=== PATIENT | female | born 1985 | race Caucasian/White ===

== ENCOUNTER → 2016-05-27 | Outpatient (CLI) | payer BC ==
--- OUTSIDE RECORDS SUMMARY | 2016-05-27 10:38 | XMS REPORT ---
Author Author Mateo Price Organization [employer] Address Unknown Phone Unavailable Care Team Providers Care Tabulating Clerk Name Role Phone Mateo Price Unavailable Allergies No Known Allergies Problems Problem Type Condition ICD-9 Code Onset Dates Condition Status Problem Fatigue 780.79 Active Problem Cold Intolerance 780.99 Active Problem Hair loss 704.00 Active Problem Asthma 493.90 Active Medications No Known Medications Results No Known Results Summary Purpose [employer] Submission
== END ==
LOC: LAB 10:34
PROVIDERS: ATTEND Obstetrics & Gynecology
DX: N97.9 Female infertility, unspecified (principal)
CPT/HCPCS: 36415; 84144

== ENCOUNTER → 2017-07-04 | Outpatient (CLI) | payer OTHER ==
[~2017-07-04] MED LIST: HYDR-757 PO; IBUP-1773 PO; MULT1CAP27 PO
--- NOTE | 2017-07-04 18:16 | Diagnostic Imaging Report ---
INDICATION: Breast pain. EXAMINATION: Left breast ultrasound. COMPARISON: None. FINDINGS: The left axilla was imaged and demonstrated no underlying mass or cyst. There is no inflammation. IMPRESSION: Negative left breast ultrasound. ACR BI-RADS Category 1: Negative. Result letter will be mailed to the patient. Note: At least 10% of breast cancer is not imaged by mammography. Dictated by: Dictated on workstation # [id number]
== END ==
LOC: RAD 10:46
PROVIDERS: ATTEND Nurse Practitioner Family
DX: N64.4 Mastodynia (principal)
CPT/HCPCS: 76642

== ENCOUNTER 2018-09-08 09:26 | Outpatient (CLI) | payer OTHER ==
[~2018-09-08] VITALS: Ht 157.5 cm; Wt 63.0 kg
[~2018-09-08 09:26] MED LIST changes: +HYDR-4226 PO; -HYDR-757 PO
[2018-09-08] MEDS ORDERED: L.AC1CAP6 PO (09:37)
[2018-09-08] MEDS ORDERED: [UNRECOGNIZED DRUG - OTHER] PO (09:37)
[2018-09-08 09:39] VITALS: BP 100/64
[2018-09-08 10:17] LABS: BASOPHILS % (AUTO) 1 % (0-10); EOSINOPHILS # (AUTO) 0.1 10^3/uL (0.0-0.3); EOSINOPHILS % (AUTO) 2 % (0-10); HEMATOCRIT 40 % (35-52); HEMOGLOBIN 13.7 G/DL (11.5-16.0); LYMPHOCYTES # (AUTO) 1.2 X 10^3 (1.0-4.0); LYMPHOCYTES % (AUTO) 24 % (12-44); MEAN CORPUSCULAR HEMOGLOBIN 30 PG (25-34); MEAN CORPUSCULAR HGB CONC 35 G/DL (32-36); MEAN CORPUSCULAR VOLUME 87 FL (80-99); MONOCYTES # (AUTO) 0.4 X 10^3 (0.0-1.0); MONOCYTES % (AUTO) 8 % (0-12); NEUTROPHILS # (AUTO) 3.4 X 10^3 (1.8-7.8); NEUTROPHILS % (AUTO) 66 % (42-75); PLATELET COUNT 276 10^3/uL (130-400); RED CELL DISTRIBUTION WIDTH 12.7 % (10.0-14.5); WHITE BLOOD COUNT 5.2 10^3/uL (4.3-11.0)
== END 2018-09-08 10:46 | disposition home or self-care (01) ==
LOC: PREOP 09:26
PROVIDERS: ATTEND Obstetrics & Gynecology
DX: Z01.812 Encounter for preprocedural laboratory examination (principal); Z11.2 Encounter for screening for other bacterial diseases; N94.10 Unspecified dyspareunia; R10.2 Pelvic and perineal pain; N97.1 Female infertility of tubal origin
CPT/HCPCS: 36415; 85025; 86850; 86900; 86901; 87081

== ENCOUNTER 2018-09-11 06:05 | Day surgery (SDC) | payer OTHER ==
[~2018-09-11] VITALS: Ht 157.5 cm; Wt 63.0 kg
[~2018-09-11 06:05] MED LIST changes: +L.AC1CAP6 PO; +[UNRECOGNIZED DRUG - OTHER] PO
[2018-09-11] MEDS ORDERED: LACTATED RINGERS 1,000 ML IV PRN (06:16)
[2018-09-11] MEDS ORDERED: ceFAZolin INJECTION 1,000 MG in WATER (STERILE) FOR INJECTION 10 ML IV ONE (06:30)
[2018-09-11] MEDS ORDERED: BUPIVACAINE 0.25% 30 ML (SENSORCAINE) VIAL ONE (06:36)
[2018-09-11 06:45] VITALS: BP 92/64
[2018-09-11] MEDS ORDERED: ROCURONIUM 10 MG/ML 5 ML SYRINGE IV ONE (06:58)
[2018-09-11] MEDS ORDERED: MIDAZOLAM 2 MG/2 ML (VERSED) VIAL ONE (06:58)
[2018-09-11] MEDS ORDERED: ONDANSETRON 4 MG/2 ML (SDV) Z0FRAN ONE (06:58)
[2018-09-11] MEDS ORDERED: proPOfol 200 MG/20 ML (DIPRIVAN) VIAL IV ONE (06:58)
[2018-09-11] MEDS ORDERED: fentaNYL INJECTION 100 MCG/2 ML AMP ONE ×2 (06:58→08:51)
[2018-09-11] MEDS ORDERED: LIDOCAINE PF 2% 5 ML (XYLOCAINE) VIAL ONE (06:58)
[2018-09-11] MEDS ORDERED: SEVOFLURANE (ULTANE) 15 ML INHAL SOLN ONE ×6 (07:06→08:35)
[2018-09-11] MEDS ORDERED: DEXAMETHASONE 10 MG/ML (DECADRON) 1 ML VIAL ONE (07:06)
--- NOTE | 2018-09-11 07:15 | Progress Note-Pre Operative ---
Pre-Operative Progress Note H&P Reviewed The H&P was reviewed, patient examined and no changes noted. Date Seen by Provider: Sep 11, 2018 Time Seen by Provider: 07:15 Date H&P Reviewed: Sep 11, 2018 Time H&P Reviewed: 07:15 Pre-Operative Diagnosis: Dyspareunia SHAHZAD DELVALLE DO Sep 11, 2018 07:14
[2018-09-11] MEDS ORDERED: MAGN250T2 (07:29)
[2018-09-11] MEDS ORDERED: INDIGO CARMINE 8 MG/ML 5 ML AMP ONE (07:51)
[2018-09-11] MEDS ORDERED: NEOSTIGMINE 1 MG/ML 5 ML SYRINGE ONE (08:29)
[2018-09-11] MEDS ORDERED: GLYCOPYRROLATE 0.2 MG/ML (ROBINUL) 2 ML VIAL ONE (08:30)
[2018-09-11] MEDS ORDERED: D5 LR IV SOLUTION 1,000 ML IV SCH (08:55)
[2018-09-11] MEDS ORDERED: ONDANSETRON 4 MG/2 ML (SDV) Z0FRAN IVP PRN ×2 (09:00)
[2018-09-11] MEDS ORDERED: MEPERIDINE (DEMEROL) INJ 50 MG/ML IVP ONE (09:00)
[2018-09-11] MEDS ORDERED: fentaNYL INJECTION 100 MCG/2 ML AMP IVP ONE (09:00)
[2018-09-11] MEDS ORDERED: KETOROLAC 30 MG/ML VIAL IVP ONE (09:00)
--- NOTE | 2018-09-11 09:01 | Discharge Inst-Women's Service ---
Discharge Inst-Women's Serv Depart Medication/Instructions New, Converted or Re-Newed RX: RX on Chart Consults/Follow Up Additional Follow Up: Yes Orders/Referrals [address] Delvalle Activity Driving Instructions: You May Drive (do not drive while taking narcotic pain meds) NO SMOKING: NO SMOKING Nothing Inside Vagina: No Douching, No [place], No Tampons Diet Discharge Diet: Liquid Diet Symptoms to Report to : Bleeding Excessive, Pain Increased, Fever Over 101 Degrees F, Vaginal Bleeding Increase, Questions/Concerns For Any Problems or Questions: Contact Your Physician Skin/Wound Care Infection Signs and Symptoms: Increased Redness, Foul Odor of Wound, Increased Drainage, Skin Itchy or Has a Rash, Increased Swelling, Temperature Above 101 F Operative Area Clean and Dry: Keep Incision Clean/Dry Stitches/[place]/Dermabond: Dermabond, Care of Stitches SHAHZAD DELVALLE DO Sep 11, 2018 09:01
[2018-09-11] MEDS ORDERED: IBUP-1773 PO (09:02)
[2018-09-11] MEDS ORDERED: HYDR-4226 PO (09:02)
[2018-09-11] MEDS ORDERED: KETOROLAC 30 MG/ML VIAL ONE ×2 (09:04→14:25)
[2018-09-11] MEDS ORDERED: HYDROcodone/APAP 5 MG/325 MG (LORTAB) TAB PO PRN (09:15)
[2018-09-11 09:45] VITALS: BP 110/74
--- NOTE | 2018-09-11 09:52 | CONSULTATION REPORT ---
DATE OF SERVICE: 09/11/2018 ATTENDING PHYSICIAN: Dr. El. HISTORY OF PRESENT ILLNESS: The patient is a 33-year-old female and we are asked for an intraoperative consultation. She has a history of infertility as well as disk hernia and underwent a diagnostic laparoscopy and chromotubation. During the process, the patient was found to have a gastric as well as proximal small bowel distention. Upon examination after placement of an orogastric tube and decompression, there was adequate decompression of both the stomach and the proximal small bowel. Upon further inspection laparoscopically as well, there was a small area identified in the anterior wall of the stomach near the antrum with a small overlying blood clot, which most likely indicated Veress needle insertion into the stomach. The remainder of the surgery was uneventful. The patient was extubated and there was adequate hemostasis as well as no hematomas identified. PAST MEDICAL HISTORY: Dyspareunia, infertility. PAST SURGICAL HISTORY: None. ALLERGIES: CODEINE, FEXOFENADINE, PSEUDOEPHEDRINE. MEDICATIONS: Magnesium, multivitamin ibuprofen. SOCIAL HISTORY: Negative smoke. Negative alcohol. FAMILY HISTORY: Unknown. REVIEW OF SYSTEMS: Intraoperative consultation was made. The patient is stable with stable vital signs under general anesthesia. Her weight is 63 kilograms with body mass index of 25. She has three 5 mm ports placed. Upon examination of the gastrointestinal tract under laparoscopy, the orogastric tube is allowed for decompression of the stomach as well as the proximal small bowel. There is no distal small bowel distention. Upon further inspection along the anterior wall of the antrum, there was a small blood clot with no open gastrostomy identified. No hematomas. The stomach appeared well vascularized. PHYSICAL EXAMINATION: VITAL SIGNS: Temperature 98.6, blood pressure 92/64, pulse 68, respirations 18. CHEST: Clear. Good breath sounds bilaterally. HEART: Regular. EXTREMITIES: Normal. Negative Homans'. HEENT: Normal inspection. ABDOMEN: Under laparoscopic video exploration, there appeared to be a previous small gastrostomy through Veress needle; however, after decompression there were no signs of any other injury. There is no open gastrostomy noted, only a small blood clot overlying the anterior portion of the antrum. ASSESSMENT AND PLAN: A 33-year-old female with history of disk hernia and infertility. She underwent a diagnostic laparoscopy as well as chromotubation. During the process of insufflation, there was a gastric as well as proximal small bowel distention; however, after placement of orogastric tube, there was adequate decompression and upon inspection of the stomach, there was a small blood clot most likely indicating a small Veress needle gastrostomy of the stomach as well as insufflation; however, the patient is healthy and the stomach is well vascularized and we will just recommend a conservative management with a clear liquid diet for the next 24 hours and slowly advance as tolerated. If she does have any issues with abdominal distention or nausea, vomiting or hematemesis, we will have her follow up. Job ID: [id number] DocumentID: [id number] Dictated Date: 09/11/2018 09:15:26 [employer] [address] Driver Date: 09/11/2018 09:52:11 Dictated By: DOC BROWN MD MTDD
[2018-09-11] MEDS ORDERED: PHENAZOPYRIDINE 100 MG (PYRIDIUM) TABLET ONE (10:09)
[2018-09-11 10:15] VITALS: BP 105/70
[2018-09-11] MEDS ORDERED: PHENAZOPYRIDINE 100 MG (PYRIDIUM) TABLET PO ONE (10:15)
[2018-09-11 10:45] VITALS: BP 94/60
[2018-09-11 11:15] VITALS: BP 94/60
--- NOTE | 2018-09-11 12:49 | OPERATIVE REPORT ---
DATE OF SERVICE: 09/11/2018 PREOPERATIVE DIAGNOSES: 1. A 33-year-old female with dyspareunia. 2. Intermittent chronic pelvic pains. POSTOPERATIVE DIAGNOSES: 1. A 33-year-old female with dyspareunia. 2. Intermittent chronic pelvic pains. PROCEDURE: Diagnostic laparoscopy with chromotubation, incidental pinpoint gastrotomy and evaluation by general surgeon. SURGEON: Pasquale El DO Intraoperative consultation made to Dr. Osbaldo Velasco. ANESTHESIA: General endotracheal. ESTIMATED BLOOD LOSS: Minimal. URINE OUTPUT: 50 mL clear at the end of procedure. FLUIDS: 1200 mL of lactated Ringer's solution. FINDINGS: Grossly normal-appearing external female genitalia, grossly normal appearing cervix, normal appearing uterus, bilateral fallopian tubes and ovaries with dye spillage of the right fallopian tube. No spillage on the left. SPECIMENS SENT: None. INDICATION FOR PROCEDURE: This 33-year-old female is a patient of my office that I had been seeing for the last three to four years. The patient since achieving and miscarriage approximately three years ago has had issues with pain with intercourse and intermittent chronic pelvic pains. She was attempting and was concerned about the possibility of underlying endometriosis, given her symptoms. I discussed with the patient multiple other treatment modalities which we did undergo and attempt first; however, after two years of frustration the patient wishes to proceed with laparoscopy. Risks of the procedure were discussed with the patient in detail including risk of bleeding, infection, damage to the surrounding structures including, but not limited to bowel, bladder, ureter, kidneys and gastrointestinal system, possible complications surrounding these organs being damaged, possible need for reoperation, recovery timeframe, possible need for laparotomy, risk from anesthesia and even . After everything was discussed with the patient in detail, consent was obtained in the preoperative area and the patient was taken to the operating room. OPERATIVE REPORT IN DETAIL: Once in the operating room, general anesthesia was found to be adequate, placed in dorsal lithotomy position, prepped and draped in normal sterile fashion. A timeout was performed. A catheter was placed using sterile technique. A weighted speculum was inserted in the patient's vagina. A right angle retractor was used to visualize the cervix, which was grasped at 12 o'clock position using long Allis clamp. I then gently sound the uterine cavity and depth was found to be 8 cm. I placed a Kronner uterine manipulator into the endometrial canal, deploying the balloon tip in the endometrial cavity after which an excellent manipulation was noted on bimanual exam. I then removed all the other instruments from the patient's vagina. We performed change of gloves and took my attention to the abdomen where infraumbilically I infiltrated this area using 0.25% Marcaine to made a 5 mm incision and directed a Veress needle through the incision until intraperitoneal placement was confirmed using a saline drop test. I proceeded with insufflation using CO2 gas and opening pressure was noted to be high approximately 25 mmHg. I then removed the Veress needle and proceed with placing the trocar through the incision with laparoscopic guidance. Once I do this, I am able to confirm intraperitoneal placement by the visualization of the omentum. I then proceeded with insufflation using CO2 gas and ppening pressure of 5 mmHg was noted. We quickly reached a maximum pressure of 15 mmHg, at which point I am able to identify a pinpoint gastrotomy from the Veress needle. The stomach itself does appear insufflated. I have anesthesia insert orogastric tube and applied suction, which decompresses the stomach. There was no active bleeding noted from the pinpoint area; however, I do contact general surgery who comes in and evaluates. Dr. Velasco comes in and discussed 24-hour clear liquid diet after the procedure. Otherwise, no further intervention was needed. I then proceeded with the remainder of the case as planned. The patient was placed in steep Trendelenburg. I am able to visualize all the pelvic anatomy findings as described above. I then pressed three separate 30 mL syringes of indigo carmine mixed with normal saline through the Kronner uterine manipulator. There is immediate spillage from the right fallopian tube. There is some partial filling of the left fallopian tube that is evident by the dye permitting through the serosal surface; however, there was no spillage from the left fallopian tube at the distal ampullary portion. At this point, I do not recognize any signs of serosal endometriosis implants after evaluating the pelvic anatomy extensively. I then copiously irrigated the pelvis using normal saline and suctioned out the vast majority of the indigo carmine dye after which, there was no active bleeding noted from any of my dissection planes. I had the patient taken out of the steep Trendelenburg and flattened out. At this point, insufflation was released and the trocars were released as well. The skin was then reapproximated using 4-0 Monocryl in interrupted subcuticular stitches. Dermabond was applied to the incision and Band-Aids were placed over the incisions as well. The patient tolerated the procedure well and was taken to recovery area in stable condition. Lap and sponge counts were correct at the end of the procedure. Instrument counts were correct as well. The Kronner uterine manipulator and the Brenner catheter was removed prior to the patient coming out of anesthesia. Job ID: [id number] DocumentID: [id number] Dictated Date: 09/11/2018 09:35:06 Auto Transport Driver Date: 09/11/2018 12:49:06 Dictated By: DO PAULY LUCERO
== END 2018-09-11 11:15 | disposition home or self-care (01) ==
LOC: SDC 06:05
PROVIDERS: ATTEND Obstetrics & Gynecology
DX: N94.10 Unspecified dyspareunia (principal); R10.2 Pelvic and perineal pain; S36.39XA Other injury of stomach, initial encounter; Y65.8 Other specified misadventures during surgical and medical care
CPT/HCPCS: 84703; 86850; 86900; 86901

== ENCOUNTER → 2020-05-12 | Outpatient (CLI) | payer OTHER ==
[~2020-05-12] MED LIST changes: +MAGN250T2
--- NOTE | 2020-05-12 12:31 | Diagnostic Imaging Report ---
PROCEDURE: US Non-ob pelvis comp/trans. TECHNIQUE: Multiple realtime grayscale images were obtained of the pelvis in various projections endovaginally. Transabdominal imaging was also performed. INDICATION: Amenorrhea, fertility monitoring. FINDINGS: The right ovary measured 3.4 x 1.5 x 2.2 cm. Its dominant follicle was 2.2 cm simple-appearing cyst. The left ovary measured 2.5 x 1.6 x 1.3 cm. Small subcentimeter follicular cysts are present measuring 5 mm, 5 mm, and 4 mm maximal. The uterus appeared normal. There is no fibroid or myometrial mass. The endometrium was 4 mm in maximal thickness. IMPRESSION: No adnexal torsion. Ovarian volumes with normal follicular cysts, as described. Dictated by: Dictated on workstation # [id number]
== END ==
LOC: RAD 11:00
PROVIDERS: ATTEND Obstetrics & Gynecology Reproductive Endocrinology
DX: N91.2 Amenorrhea, unspecified (principal); L72.9 Follicular cyst of the skin and subcutaneous tissue, unspecified
CPT/HCPCS: 76830; 76856

== ENCOUNTER 2020-07-27 05:31 | Outpatient (RCR) | payer OTHER ==
--- NOTE | 2020-07-27 07:15 | History & Physical-Surgical ---
HPO-Surgical History of Present Illness Chief Complaint: Patient referred by her [facility] specialist in [place] for suction d and c due to missed ab diagnosed on US at last appointment there. Diagnosis/Surgical Indication: Missed Ab Procedure: Suction D and C Date of Surgery: Jul 28, 2020 Weight (Pounds): 139 Weight (Ounces): 0.0 Height (Feet): 5 Height (Inches): 2.00 Allergies and Home Medications Allergies Coded Allergies: codeine (Verified Allergy, Mild, NAUSEA, 09/08/18) fexofenadine (Verified Allergy, Mild, NAUSEA, 09/08/18) pseudoephedrine (Verified Allergy, Mild, NAUSEA, 09/08/18) Home Medications Hydrocodone/Acetaminophen 1 Each Tablet, 1 TAB PO Q4-6HR Prescribed by: SHAHZAD DELVALLE on 09/11/18901 Ibuprofen 600 Mg Tablet, 600 MG PO Q6H Prescribed by: SHAHZAD DELVALLE on 09/11/18 09 Multivitamin 1 Each Capsule, 1 EACH PO DAILY, (Reported) [Plexus Bi Jcleanse] , 1-2 TAB PO DAILY, (Reported) Patient Home Medication List Home Medication List Reviewed: Yes Past Ltgepxq-Adfrgp-Zrrfys Hx Patient Social History Marrital Status: Number of Children: 0 Employed/Student: employed Smoking Status: Never a Smoker 2nd Hand Smoke Exposure: No Recent Hopitalizations: No Immunizations Up To Date Tetanus Booster (TDap): Unknown Seasonal Allergies Seasonal Allergies: No Surgeries Yes (BMT x3, Foot x3, [place] Teeth, D&C) Adenoidectomy Respiratory No (Asthma as a child) Cardiovascular No Neurological No Reproductive System Sexually Transmitted Disease: No HIV/AIDS: Yes Female Reproductive Disorders: Denies Genitourinary No Gastrointestinal No Musculoskeletal No Endocrine History of Endocrine Disorders: No HEENT History of HEENT Disorders: Yes (CONTACTS) Loss of Vision: Bilateral Hearing Impairment: Denies Cancer No Psychosocial History of Psychiatric Problem: No Integumentary History of Skin or Integumenta: No Blood Transfusions History of Blood Disorders: No Adverse Reaction to a Blood Tr: No (N/A) Exam Vital Signs Capillary Refill : Labs Laboratory Tests Test 07/27/20 05:52 Range/Units General Appearance: Alert, Oriented X3, Cooperative HEENT: Atraumatic, PERRLA Respiratory: Clear to Auscultation Cardiovascular: Regular Rate, Normal S1, Normal S2 Abdominal: Normal Bowel Sounds, Soft Neuro: Normal Gait, Normal Speech Psych/Mental Status: Mental Status NL Assessment/Plan Assessment and Plan Plan: Suction D and C planned for tomorrow Admission Diagnosis 35 yo 1st trimester Missed Ab Admission Status: Observation SHAHZAD DELVALLE DO Jul 27, 2020 07:15
[2020-07-28] MEDS ORDERED: ESTR10VI2 IM (07:08)
[2020-07-28] MEDS ORDERED: PROG50VI5 IM (07:08)
[2020-07-28] MEDS ORDERED: ASPI-999 PO (07:08)
[2020-07-28] MEDS ORDERED: IBUP-1773 PO (07:20)
== END 2020-07-27 11:12 | disposition home or self-care (01) ==
LOC: PREOP 05:31
PROVIDERS: ATTEND Obstetrics & Gynecology
DX: Z01.812 Encounter for preprocedural laboratory examination (principal); O03.4 Incomplete spontaneous abortion without complication; Z20.822 Contact with and (suspected) exposure to COVID-19
CPT/HCPCS: 87635

== ENCOUNTER 2020-07-28 06:05 | Day surgery (SDC) | payer OTHER ==
[2020-07-28] VITALS (9 sets, daily range): BP systolic 81–111; BP diastolic 51–74
[~2020-07-28] VITALS: Ht 157.5 cm; Wt 63.6 kg
[2020-07-28] MEDS ORDERED: proPOfol 200 MG/20 ML (DIPRIVAN) VIAL IV ONE (06:35)
[2020-07-28] MEDS ORDERED: ONDANSETRON 4 MG/2 ML (SDV) Z0FRAN ONE (06:35)
[2020-07-28] MEDS ORDERED: LIDOCAINE PF 2% 5 ML (XYLOCAINE) VIAL ONE (06:35)
[2020-07-28] MEDS ORDERED: MIDAZOLAM 2 MG/2 ML (VERSED) VIAL ONE (06:36)
[2020-07-28] MEDS ORDERED: fentaNYL INJECTION 100 MCG/2 ML AMP ONE (06:36)
[2020-07-28] MEDS ORDERED: SEVOFLURANE (ULTANE) 15 ML INHAL SOLN ONE (06:37)
[2020-07-28 07:02] LABS: BASOPHILS # (AUTO) 0.1 10^3/uL (0.0-0.1); BASOPHILS % (AUTO) 1 % (0-10); EOSINOPHILS # (AUTO) 0.6 10^3/uL (0.0-0.3); EOSINOPHILS % (AUTO) 5 % (0-10); HEMATOCRIT 40 % (35-52); HEMOGLOBIN 13.7 g/dL (11.5-16.0); LYMPHOCYTES # (AUTO) 1.8 10^3/uL (1.0-4.0); LYMPHOCYTES % (AUTO) 16 % (12-44); MEAN CORPUSCULAR HEMOGLOBIN 30 pg (25-34); MEAN CORPUSCULAR HGB CONC 34 g/dL (32-36); MEAN CORPUSCULAR VOLUME 89 fL (80-99); MEAN PLATELET VOLUME 9.9 fL (9.0-12.2); MONOCYTES # (AUTO) 0.8 10^3/uL (0.0-1.0); MONOCYTES % (AUTO) 7 % (0-12); NEUTROPHILS # (AUTO) 8.1 10^3/uL (1.8-7.8); NEUTROPHILS % (AUTO) 72 % (42-75); PLATELET COUNT 298 10^3/uL (130-400); WHITE BLOOD COUNT 11.4 10^3/uL (4.3-11.0)
[2020-07-28] MEDS ORDERED: ESTR10VI2 IM (07:08)
[2020-07-28] MEDS ORDERED: ASPI-999 PO (07:08)
[2020-07-28] MEDS ORDERED: PROG50VI5 IM (07:08)
[2020-07-28] MEDS ORDERED: LACTATED RINGERS 1,000 ML IV PRN (07:15)
[2020-07-28] MEDS ORDERED: IBUP-1773 PO (07:20)
--- NOTE | 2020-07-28 07:21 | Discharge Inst-Women's Service ---
Discharge Inst-Women's Serv Depart Medication/Instructions New, Converted or Re-Newed RX: RX on Chart Problems Reviewed?: Yes Consults/Follow Up Additional Follow Up: Yes Orders/Referrals Dr. Delvalle in 7-10 days Activity Activity: Activity as Tolerated Driving Instructions: No Driving for 1 Week NO SMOKING: NO SMOKING Nothing Inside Vagina: No Douching, No [place], No Tampons Diet Discharge Diet: No Restrictions Symptoms to Report to : Bleeding Excessive, Pain Increased, Fever Over 101 Degrees F, Vaginal Bleeding Increase, Questions/Concerns For Any Problems or Questions: Contact Your Physician SHAHZAD DELVALLE DO Jul 28, 2020 07:21
[2020-07-28] MEDS ORDERED: KETOROLAC 30 MG/ML VIAL IVP ONE (07:30)
[2020-07-28] MEDS ORDERED: ONDANSETRON 4 MG/2 ML (SDV) Z0FRAN IVP PRN (07:30)
[2020-07-28] MEDS ORDERED: D5 LR IV SOLUTION 1,000 ML IV SCH (07:30)
[2020-07-28] MEDS ORDERED: KETOROLAC 30 MG/ML VIAL ONE (07:51)
--- NOTE | 2020-07-28 10:03 | Anesthesia-General Post-Op ---
General Patient Condition Mental Status/LOC: Same as Preop Cardiovascular: Satisfactory Nausea/Vomiting: Absent Respiratory: Satisfactory Pain: Controlled Complications: Absent Post Op Complications Complications None Follow Up Care/Instructions Patient Instructions None needed. Anesthesia/Patient Condition Patient Condition Patient was just discharged to home but she was doing well, no complaints, stable vital signs, no apparent adverse anesthesia problems. HALLIE CHARLES 4, 2021 10:03
--- NOTE | 2020-07-28 15:53 | OPERATIVE REPORT ---
DATE OF SERVICE: 07/28/2020 PREOPERATIVE DIAGNOSES: 1. A 35-year-old G2, P0 at approximately 6 weeks' gestation by embryo transfer dating. 2. Missed . POSTOPERATIVE DIAGNOSES: 1. A 35-year-old G2, P0 at approximately 6 weeks' gestation by embryo transfer dating. 2. Missed . PROCEDURE: Suction D and C. SURGEON: Pasquale El DO ANESTHESIA: LMA general. ESTIMATED BLOOD LOSS: 100 mL. URINE OUTPUT: 50 mL, clear drained at the start of the procedure. FLUIDS: 700 mL lactated Ringer's solution. FINDINGS: Grossly normal-appearing external female genitalia with a small to moderate amount of uterine products of conception removed. SPECIMEN SENT: Products of conception. INDICATIONS FOR PROCEDURE: This 35-year-old female is a patient who had sought reproductive assisted technology in [place] with [facility]. She had a transfer of 1 embryo done back at the end of May. Followup ultrasound and blood work revealed missed AB with her medical laboratory technicians. She wished to proceed with suction D and C here in [place] rather than traveling to for this procedure. Risks of the procedure was reviewed with the patient in the preoperative area including risk of bleeding, infection, recovery timeframe, risk from anesthesia. After all her questions were answered, consent was obtained in the preoperative area, the patient was taken to the operating room. OPERATIVE REPORT IN DETAIL: Once in the operating room, anesthesia was found to be adequate, placed in dorsal lithotomy position, prepped and draped in normal sterile fashion. Timeout was performed. Weighted speculum was inserted to the patient's vagina. A right angle retractor was used to visualize the cervix, which was grasped 12 o'clock position using a long Allis clamp. I then performed a sounding of the uterine cavity, which was sound to be approximately 7 to 8 cm. I then gently dilated the cervix using Hanks dilators to maximum dilatation approximately 0.8 cm, at which point I placed a #7 rigid suction curette into the endometrial cavity. I applied Harmon suction to approximately 70 to 80 mmHg, at which point I methodically cleared the endometrium of the products of conception by multiple passage of rotating the suction curette. This was done multiple times until I feel that there has been adequate removal of all the products of conception. After this, I then performed a gentle curettage of the endometrial cavity using a small endometrial curette until a very gentle uterine cry is noted, at which point there was no active bleeding noted from the cervix. The bladder was drained using straight catheterization. Weighted speculum was removed. All other instruments were removed from the patient's vagina. The patient tolerated the procedure well and sent to recovery area in stable condition. Lap and sponge counts were correct at the end of the procedure. Instrument counts correct as well. Job ID: [id number] DocumentID: [id number] Dictated Date: 07/28/2020 11:14:46 Barn Hand Date: 07/28/2020 15:53:05 Dictated By: DO PAULY LUCERO
== END 2020-07-28 09:35 | disposition home or self-care (01) ==
LOC: SDC 06:05
PROVIDERS: ATTEND Obstetrics & Gynecology
DX: O02.1 Missed abortion (principal); Z88.5 Allergy status to narcotic agent; Z88.8 Allergy status to other drugs, medicaments and biological substances
CPT/HCPCS: 36415; 85025; 86850; 86900; 86901; 87081; 88305